=== PATIENT | female | born 1985 | race Two or more races ===

== ENCOUNTER 2017-10-23 16:05 | Outpatient (CLI) | payer OTHER | END 2017-10-23 16:20 | disposition home or self-care (01) | LOC: SONOGRAMA 16:05 | DX: E04.8 Other specified nontoxic goiter (principal) ==

== ENCOUNTER 2017-11-28 10:23 | Outpatient (CLI) | payer OTHER | END 2017-11-28 10:38 | disposition home or self-care (01) | LOC: SONOGRAMA 10:23 | DX: N84.0 Polyp of corpus uteri (principal) ==

== ENCOUNTER → 2017-12-09 | Outpatient (CLI) | payer OTHER | END | disposition home or self-care (01) | LOC: PPH VACUNA 09:30 | DX: Z23 Encounter for immunization (principal) ==

== ENCOUNTER 2018-09-19 12:44 | Outpatient (CLI) | payer OTHER | END 2018-09-19 13:15 | disposition home or self-care (01) | LOC: SONOGRAMA 12:44 | DX: N60.19 Diffuse cystic mastopathy of unspecified breast (principal) ==

== ENCOUNTER 2019-07-21 07:51 | Outpatient (CLI) | payer OTHER | END 2019-07-21 07:58 | disposition home or self-care (01) | LOC: RAD 07:51 | DX: Z01.811 Encounter for preprocedural respiratory examination (principal) ==

== ENCOUNTER 2019-09-22 07:42 | Outpatient (CLI) | payer OTHER | END 2019-09-22 07:50 | disposition home or self-care (01) | LOC: LAB 07:42 | DX: Z01.812 Encounter for preprocedural laboratory examination (principal); D68.8 Other specified coagulation defects; D06.9 Carcinoma in situ of cervix, unspecified; R94.31 Abnormal electrocardiogram [ECG] [EKG] ==

== ENCOUNTER 2019-10-08 08:20 | Outpatient (CLI) | payer OTHER | END 2019-10-08 08:22 | disposition home or self-care (01) | LOC: SONOGRAMA 08:20 | DX: E04.8 Other specified nontoxic goiter (principal) ==

== ENCOUNTER 2020-09-06 10:44 | Outpatient (CLI) | payer OTHER | END 2020-09-06 10:53 | disposition home or self-care (01) | LOC: RX STUDY 10:44 | PROVIDERS: ATTEND Obstetrics & Gynecology | DX: N93.8 Other specified abnormal uterine and vaginal bleeding (principal) ==